=== PATIENT | female | born 1950 | race Two or more races ===

== ENCOUNTER 2016-10-26 08:56 | Emergency (ER) | payer BC, OTHER ==
[~2016-10-26] VITALS: Ht 157.5 cm; Wt 50.8 kg
[2016-10-26 09:02] VITALS: BP 125/74
[2016-10-26] MEDS ORDERED: IBUPROFEN 600 MG TAB PO ONE (09:30)
== END 2016-10-26 10:17 | disposition home or self-care (01) ==
LOC: EDBD 08:56 → ER 08:58
DX: S00.83XA Contusion of other part of head, initial encounter (principal); R68.84 Jaw pain; V43.52XA Car driver injured in collision with other type car in traffic accident, initial encounter; Y93.89 Activity, other specified; Y92.89 Other specified places as the place of occurrence of the external cause; Y99.8 Other external cause status
CPT/HCPCS: 70110